=== PATIENT | male | born 1985 | race American Indian/Alaskan Native ===

== ENCOUNTER → 2019-12-30 | Outpatient (CLI) | payer BC, OTHER ==
[~2019-12-30] MED LIST: ALBU90OI; AMOCLA875; AMOX500 PO; CYCL10 PO; DIAZ5 PO; FLUSAL1005; HYDACE5 PO; LOPE2C PO; OXYACE7.5T PO; RXCYCL10 PO; RXOXYACE PO; Zofran8 MG PO
== END | disposition home or self-care (01) ==
LOC: PLD 12:34 → LAB SHORT 12:34
DX: D22.5 Melanocytic nevi of trunk (principal)
CPT/HCPCS: 88305

== ENCOUNTER 2021-12-30 23:11 | Emergency (ER) | payer BC, OTHER ==
[~2021-12-30] VITALS: Ht 195.6 cm; Wt 77.1 kg
[2021-12-31 00:44] LABS: Influenza A, PCR NEGATIVE (NEGATIVE); Influenza B, PCR NEGATIVE (NEGATIVE); Resp Syncytial Virus, PCR NEGATIVE (NEGATIVE)
[2021-12-31 01:28] LABS: SARS-Cov-2 (COVID-19) PCR, MMC POSITIVE (NEGATIVE)
[2021-12-31] MEDS ORDERED: ONDA4ODT MM (02:03)
== END 2021-12-31 02:08 | disposition home or self-care (01) ==
LOC: ER 23:11
PROVIDERS: Emergency Medicine
DX: U07.1 COVID-19 (principal); J45.909 Unspecified asthma, uncomplicated; Z79.899 Other long term (current) drug therapy; Z88.6 Allergy status to analgesic agent
CPT/HCPCS: 0241U; 99283; A9270

== ENCOUNTER 2023-11-14 02:34 | Inpatient (IN) | payer BC, OTHER ==
[~2023-11-14 02:34] MED LIST changes: +ONDA4ODT MM
[2023-11-14] MEDS ORDERED: Morphine Sulfate 4 MG/1 ML Injection IV ONE (03:50)
[2023-11-14] MEDS ORDERED: Ondansetron HCl 2 MG / ML 2ML Vial IV PRN (04:55)
[2023-11-14] MEDS ORDERED: Acetaminophen 325 MG TABLET PO PRN (05:00)
[2023-11-14] MEDS ORDERED: FentaNYL Citrate 50 MCG/ML 2 ML Injection IV PRN (05:00)
[2023-11-14 05:28] LABS: BASOPHILS ABSOLUTE AUTO 0.07 K/mm3 (0.00-0.23); BASOPHILS PERCENT AUTO 1 % (0-2); EOSINOPHILS PERCENT AUTO 3 % (0-6); Hemoglobin 13.2 g/dL (13.5-17.5); IMMATURE GRAN ABSOLUTE AUTO 0.02 K/mm3 (0.00-0.10); IMMATURE GRAN PERCENT AUTO 0 % (0-1); LYMPHOCYTES ABSOLUTE AUTO 2.41 K/mm3 (0.84-5.20); LYMPHOCYTES PERCENT AUTO 22 % (21-46); MONOCYTES ABSOLUTE AUTO 0.94 K/mm3 (0.16-1.47); MONOCYTES PERCENT AUTO 9 % (4-13); Mean Corpuscular HGB 30.1 pg (26.0-34.0); Mean Corpuscular Volume 91 fL (80-100); Mean Platelet Volume 9.8 fL (9.1-12.4); NEUTROPHILS ABSOLUTE AUTO 7.28 K/mm3 (1.96-9.15); NEUTROPHILS PERCENT AUTO 66 % (41-73); Platelet Count 252 K/mm3 (150-400); RDW Coefficient Variation 12.5 % (11.7-14.2); RDW Standard Deviation 41.6 fL (35.1-46.3); Red Blood Cell Count 4.39 M/mm3 (4.30-5.90); White Blood Cell Count 11.02 K/mm3 (4.00-11.30)
[2023-11-14 05:51] LABS: Albumin, Blood 3.7 g/dL (3.4-5.0); Albumin/Globulin Ratio 1.1 (0.8-1.8); Bilirubin, Total 0.2 mg/dL (0.1-1.0); Bun/Creatinine Ratio 15.4 (12.0-20.0); Creatinine, Blood 0.91 mg/dL (0.60-1.20); Globulin, Blood 3.4 g/dL (2.2-4.0); Potassium, Blood 3.5 mmol/L (3.5-5.5); Total Protein, Blood 7.1 g/dL (6.4-8.2)
[2023-11-14 06:06] VITALS: BP 121/81
[2023-11-14] MEDS ORDERED: Morphine Sulfate 4 MG/1 ML Injection IV PRN (06:35)
[2023-11-14] MEDS ORDERED: HYDROcodone 5-APAP 325 TAB PO PRN (06:35)
[2023-11-14 07:41] VITALS: BP 122/71
--- NOTE | 2023-11-14 07:48 | NUR ---
SHIFT SUMMARY PT ADMITTED THIS AM FOR SPONTANEOUS PNEUMO. REPORTS OCC DYSPNEA, STATES HE FEELS HE "CANT GET A FULL BREATH". E/U RESP. SPO2 >90% ON RA. BS DIM R SIDE. [facility] TELE [facility] HR 65. REPORTS 5/10 R SHOULDER PAIN, WORSE W/MOVEMENT OR COUGHING, MEDICATED W/1 TAB NORCO. STATES HE HAD COVID ROUGHLY 1 WK AGO. HAS DRY COUGH. REPORTS NEW ONSET RASH TO BLE SINCE TODAY, OUTLINED W/MARKER & INFORMED ONCOMING RN. CALL LIGHT IN REACH & PT ABLE TO MAKE NEEDS KNOWN.
[2023-11-14] MEDS ORDERED: Enoxaparin 40 MG/0.4 ML SYR SC SCH (09:00)
[2023-11-14] MEDS ORDERED: Polyethylene Glycol 3350 17 gm PO SCH (13:00)
[2023-11-14 15:31] VITALS: BP 125/77
--- NOTE | 2023-11-14 18:28 | NUR ---
SHIFT SUMMARY PT A&OX4, VSS/RA, MARKELL PO, VOIDING, AMB INDEPENDENTLY, PAIN MANAGED, IV LFA/SL, DR PRETTY CONSULTED WITH PT: WILL CALL TO MAKE [facility] TRANSFER PLAN TOMORROW, 0500 XRAY. WILL REPORT TO ONCOMING NOC RN.
[2023-11-14 19:11] VITALS: BP 121/72
[2023-11-14] MEDS ORDERED: CLOT10 MT (19:19)
[2023-11-14] MEDS ORDERED: FLUC200 PO (19:20)
[2023-11-15] VITALS (8 sets, daily range): BP systolic 117–128; BP diastolic 66–74
--- NOTE | 2023-11-15 05:31 | NUR ---
SHIFT SUMMARY A&Ox4, CALLS AND COMMUNICATES NEEDS APPROPRIATELY. BP STALBE, SINUS 60-70's, DENIES CP/PRESSURE. SpO2> 92% RA, DENIES SOB. THORAVENT IN R ANTERIOR CHEST WALL WNL, PT REPORTS MILD TENDERNESS; MEDICATED PER EMAR. IND IN ROOM. NO OTHER EVENTS, WILL REPORT TO ONCOMING RN.
[2023-11-15] MEDS ORDERED: Fluconazole 100 MG Tab PO ONE (12:55)
[2023-11-15] MEDS ORDERED: Clotrimazole 10 MG Troche MT SCH (13:00)
--- NOTE | 2023-11-15 17:27 | NUR ---
SHIFT SUMMARY R PNEUMOTHORAX THORAVENT REMAINS CDI. PT DENIES SOB DURING SHIFT AND REPORTS MINIMAL PAIN. IND IN ROOM CALLS APPROPRIATLY. [facility] HAS ACCEPTED AWAITING BED PLACEMENT AND WILL COBRA TRANSFER. PT EDUCATED ON PLAN AND IS AGREEABLE TO PLAN. NO CHANGES TO RASH ON LOWER LEGS. DENIES ITCHING OR PAIN.
--- NOTE | 2023-11-15 20:41 | NUR ---
TELE BOX RETURNED TO PCU. PT NOTIFIED OF APPROXIMATE TRANSFER TIME.
--- NOTE | 2023-11-15 21:06 | NUR ---
TRANSFER PT TRANSFERED TO [facility] VIA [facility]. VSS. TRANSFERED INDEPENDENTLY TO [facility]. THORAVENT CLAMPED, PT DENIES SOB. LUNG SOUNDS CLEAR. REPORT GIVEN TO MARK PARRA. ALL PERSONAL BELONGINGS SENT W/ PT. DISCHARGE PACKET SENT W/ RECLAMATION FURNACE OPERATOR.
== END 2023-11-15 20:58 | disposition short-term general hospital (02) | DRG 201 ==
LOC: ER 02:34 → SURS 02:35
PROVIDERS: ADMIT Internal Medicine
PROC: 0W9930Z Drainage of Right Pleural Cavity with Drainage Device, Percutaneous Approach (ICD-10-PCS; principal; 2023-11-14)
DX: J93.83 Other pneumothorax (principal); J45.909 Unspecified asthma, uncomplicated; R21 Rash and other nonspecific skin eruption; Z90.49 Acquired absence of other specified parts of digestive tract; Z87.891 Personal history of nicotine dependence
CPT/HCPCS: 32551; 71045; 80053; 85025; 96372; 96374-59; 96375; 96376; 99285-25; A9270; G0378; J1650; J2270; J2405; J3010

== ENCOUNTER 2023-11-27 00:07 | Day surgery (SDC) | payer BC, OTHER ==
[~2023-11-27 00:07] MED LIST changes: +CLOT10 MT; +FLUC200 PO
== END 2023-11-27 22:42 | disposition home or self-care (01) ==
LOC: WOUND 00:07
DX: T81.32XA Disruption of internal operation (surgical) wound, not elsewhere classified, initial encounter (principal); Y83.8 Other surgical procedures as the cause of abnormal reaction of the patient, or of later complication, without mention of misadventure at the time of the procedure
CPT/HCPCS: A6213; G0463

== ENCOUNTER 2023-11-29 04:24 | Day surgery (SDC) | payer BC, OTHER | END 2023-11-29 23:14 | disposition home or self-care (01) | LOC: WOUND 04:24 | DX: T81.32XA Disruption of internal operation (surgical) wound, not elsewhere classified, initial encounter (principal); Y83.8 Other surgical procedures as the cause of abnormal reaction of the patient, or of later complication, without mention of misadventure at the time of the procedure | CPT/HCPCS: A6213; G0463 ==

== ENCOUNTER 2023-12-01 05:01 | Day surgery (SDC) | payer BC, OTHER | END 2023-12-01 22:41 | disposition home or self-care (01) | LOC: WOUND 05:01 | DX: T81.32XA Disruption of internal operation (surgical) wound, not elsewhere classified, initial encounter (principal); Y73.8 Miscellaneous gastroenterology and urology devices associated with adverse incidents, not elsewhere classified ==

== ENCOUNTER 2023-12-04 04:26 | Day surgery (SDC) | payer BC, OTHER | END 2023-12-04 22:51 | disposition home or self-care (01) | LOC: WOUND 04:26 | DX: T81.32XD Disruption of internal operation (surgical) wound, not elsewhere classified, subsequent encounter (principal); Y83.8 Other surgical procedures as the cause of abnormal reaction of the patient, or of later complication, without mention of misadventure at the time of the procedure; S21.202D Unspecified open wound of left back wall of thorax without penetration into thoracic cavity, subsequent encounter; S21.209D Unspecified open wound of unspecified back wall of thorax without penetration into thoracic cavity, subsequent encounter; X58.XXXD Exposure to other specified factors, subsequent encounter ==

== ENCOUNTER 2024-06-15 14:03 | Emergency (ER) | payer BC, OTHER ==
[~2024-06-15] VITALS: Ht 195.6 cm; Wt 74.8 kg
[2024-06-15 14:44] VITALS: BP 138/74
[2024-06-15 15:32] LABS: BASOPHILS ABSOLUTE AUTO 0.04 K/mm3 (0.00-0.23); BASOPHILS PERCENT AUTO 0 % (0-2); EOSINOPHILS ABSOLUTE AUTO 0.18 K/mm3 (0.00-0.68); EOSINOPHILS PERCENT AUTO 2 % (0-6); Hematocrit 43.5 % (37.0-53.0); Hemoglobin 14.6 g/dL (13.5-17.5); IMMATURE GRAN ABSOLUTE AUTO 0.02 K/mm3 (0.00-0.10); IMMATURE GRAN PERCENT AUTO 0 % (0-1); LYMPHOCYTES ABSOLUTE AUTO 3.26 K/mm3 (0.84-5.20); LYMPHOCYTES PERCENT AUTO 36 % (21-46); MONOCYTES ABSOLUTE AUTO 0.59 K/mm3 (0.16-1.47); MONOCYTES PERCENT AUTO 6 % (4-13); Mean Corpuscular HGB 30.2 pg (26.0-34.0); Mean Corpuscular HGB Conc 33.6 g/dL (31.5-36.5); Mean Corpuscular Volume 90 fL (80-100); Mean Platelet Volume 10.1 fL (9.1-12.4); NEUTROPHILS ABSOLUTE AUTO 5.09 K/mm3 (1.96-9.15); NEUTROPHILS PERCENT AUTO 56 % (41-73); Platelet Count 242 K/mm3 (150-400); RDW Standard Deviation 42.8 fL (35.1-46.3); Red Blood Cell Count 4.84 M/mm3 (4.30-5.90); White Blood Cell Count 9.18 K/mm3 (4.00-11.30)
[2024-06-15 15:54] LABS: Albumin, Blood 4.1 g/dL (3.4-5.0); Albumin/Globulin Ratio 1.6 (0.8-1.8); Bilirubin, Total 0.4 mg/dL (0.1-1.0); Bun/Creatinine Ratio 22.8 (12.0-20.0); Calcium, Blood 8.8 mg/dL (8.5-10.1); Creatinine, Blood 0.97 mg/dL (0.60-1.20); Globulin, Blood 2.6 g/dL (2.2-4.0); Potassium, Blood 3.6 mmol/L (3.5-5.5); Total Protein, Blood 6.7 g/dL (6.4-8.2)
[2024-06-15] MEDS ORDERED: Naprosyn500 MG PO (16:43)
== END 2024-06-15 17:00 | disposition home or self-care (01) ==
LOC: ER 14:03
PROVIDERS: Student in an Organized Health Care Education/Training Program
DX: R07.9 Chest pain, unspecified (principal); J45.909 Unspecified asthma, uncomplicated; Z79.899 Other long term (current) drug therapy
CPT/HCPCS: 71046; 80053; 85025; 93005; 93010; 99285-25